=== PATIENT | male | born 1950 | race African-American/Black ===

== ENCOUNTER 2022-02-16 15:02 | Observation (INO) | payer MEDICARE ==
[2022-02-16 16:21] LABS: #Eosinphils 0.1 10x3/uL (0.0-0.5); #Monocytes 0.9 10x3/uL (0.0-1.1); #Neutrophils 4.4 10x3/uL (1.5-8.4); %Basophils 0.6 % (0.0-2.0); %Eosinophils 1.4 % (0.0-6.0); %Lymphocytes 20.8 % (18.0-47.0); %Monocytes 13.3 % (0.0-10.0); %Neutrophils 63.5 % (40.0-75.0); Hemoglobin 15.5 g/dL (13.5-17.5); Mean Corpuscular HGB CONC 34.2 g/dL (32.0-36.0); Mean Corpuscular Hemoglobin 31.8 pg (27.0-33.0); Mean Corpuscular Volume 92.8 fl (81.2-95.1); Mean Platelet Volume 10.4 fl (7.4-10.4); Platelet Count 136 10x3/uL (150-450); RBC Distribution Width 13.7 % (11.5-14.5); Red Blood Cell (RBC) Count 4.88 10x6/uL (4.32-5.72); White Blood Cell (WBC) Count 6.9 10x3/uL (3.5-10.5)
[2022-02-16 16:23] LABS: ALT (SGPT) 23 U/L (8-55); AST (SGOT) 20 U/L (5-34); Albumin 4.1 g/dL (3.4-4.8); Alkaline Phosphatase 48 U/L (40-110); Anion Gap 16 mmol/L (10-20); BUN (Urea Nitrogen) 24 mg/dL (8.4-25.7); Bilirubin, Total 1.9 mg/dL (0.2-1.2); CK (CPK) 55 U/L (30-200); Calc. Creatinine Clearance 0 mL/min (70-130); Calcium 9.7 mg/dL (7.8-10.44); Carbon Dioxide 20 mmol/L (23-31); Chloride 110 mmol/L (98-107); Globulin 3.3 g/dL (2.4-3.5); Glucose 97 mg/dL (83-110); Potassium 3.9 mmol/L (3.5-5.1); Protein, Total 7.4 g/dL (5.8-8.1); Sodium 142 mmol/L (136-145)
[2022-02-16 16:47] LABS: CKMB 0.9 ng/mL (0-6.6)
[2022-02-16 19:37] LABS: Troponin I 0.035 ng/mL (< 0.028)
[2022-02-16 20:20] VITALS: BMI 25.0
[2022-02-16 21:53] LABS: SARS-CoV-2 NAA Rapid Test Not Detected (NotDetected)
[2022-02-16] MEDS ORDERED: Acetaminophen 325 MG TAB PO PRN (22:29)
[2022-02-16] MEDS ORDERED: Furosemide 40 MG/4 ML VIAL SLOW IVP SCH (22:30)
[2022-02-16 22:39] LABS: Troponin I 0.031 ng/mL (< 0.028)
[2022-02-16 22:45] LABS: Magnesium 2.1 mg/dL (1.6-2.6)
[2022-02-16] MEDS ORDERED: Nitroglycerin 2% Ointment 1 INCH/1 GM Packet TOP SCH ×2 (22:45→23:00)
[2022-02-17] MEDS ORDERED: Furosemide 40 MG/4 ML VIAL SLOW IVP SCH ×2 (02:00→06:00)
[2022-02-17 05:05] LABS: #Eosinphils 0.1 10x3/uL (0.0-0.5); #Monocytes 0.7 10x3/uL (0.0-1.1); #Neutrophils 2.3 10x3/uL (1.5-8.4); %Basophils 0.6 % (0.0-2.0); %Lymphocytes 33.5 % (18.0-47.0); %Monocytes 14.2 % (0.0-10.0); %Neutrophils 48.5 % (40.0-75.0); Hemoglobin 15.1 g/dL (13.5-17.5); Mean Corpuscular HGB CONC 33.9 g/dL (32.0-36.0); Mean Corpuscular Volume 94.3 fl (81.2-95.1); Mean Platelet Volume 9.9 fl (7.4-10.4); Platelet Count 144 10x3/uL (150-450); RBC Distribution Width 13.8 % (11.5-14.5); Red Blood Cell (RBC) Count 4.72 10x6/uL (4.32-5.72); White Blood Cell (WBC) Count 4.7 10x3/uL (3.5-10.5)
[2022-02-17 05:20] LABS: Anion Gap 14 mmol/L (10-20); BUN (Urea Nitrogen) 21 mg/dL (8.4-25.7); Calc. Creatinine Clearance 59 mL/min (70-130); Calcium 9.7 mg/dL (7.8-10.44); Carbon Dioxide 29 mmol/L (23-31); Cardiac Risk 3.4 (Less than 4.5); Chloride 105 mmol/L (98-107); Cholesterol 172 mg/dl (< 200 Desired); Glucose 100 mg/dL (83-110); HDL Cholesterol 51 mg/dL (>60 Neg Risk); LDL Cholesterol, Calculated 97 mg/dL; Potassium 3.7 mmol/L (3.5-5.1); Sodium 144 mmol/L (136-145); Triglycerides 118 mg/dL (Less than 150)
[2022-02-17] MEDS: Nitroglycerin 2% Ointment 1 INCH/1 GM Packet TOP SCH ×2 (06:01→14:42)
[2022-02-17 07:06] LABS: Bilirubin Neg (Negative); Blood, Urine Negative (Negative); Clarity Clear (Clear); Glucose, Urine (Dipstick) Normal (Negative); Ketone, Urine Negative (Negative); Leukocyte Negative (Negative); Nitrite Negative (Negative); Protein, Urine (Dipstick) Negative (Neg-Trace); Specific Gravity, Urine 1.015 (1.002-1.036); Urobilinogen Normal mg/dL (Less than 2)
[2022-02-17 07:20] LABS: Bacteria/HPF 1+ HPF (None Seen); RBC/HPF 0-3 HPF (0-3); Squamous Epithelial 0-3 HPF (0-3); WBC/HPF 0-3 HPF (0-3)
[2022-02-17] MEDS ORDERED: Amlodipine 10 MG TAB PO SCH (09:00)
[2022-02-17] MEDS ORDERED: Hydrochlorothiazide 25 MG TAB PO SCH (09:00)
[2022-02-17] MEDS ORDERED: Cholecalciferol 1,000 UNITS (25 MCG) TAB PO SCH (09:00)
[2022-02-17] MEDS ORDERED: Lisinopril 20 MG TAB PO SCH (09:00)
[2022-02-17] MEDS ORDERED: Enoxaparin Sodium 40 MG/0.4 ML SYRINGE SC SCH (09:00)
[2022-02-17] MEDS: Carvedilol 3.125 MG TAB PO SCH ×2 (10:49→17:50)
[2022-02-17 16:38] VITALS: BP 111/64; TEMP 98
[2022-02-17] MEDS ORDERED: Atorvastatin Calcium 40 MG TAB PO SCH (21:00)
[2022-02-18] MEDS ORDERED: Furosemide 40 MG TAB PO SCH (09:00)
[2022-02-18] MEDS ORDERED: Aspirin 325 MG TAB PO SCH (09:00)
== END 2022-02-17 17:50 | disposition home or self-care (01) ==
LOC: CSHERS 15:02 → CSHTELE 18:04
PROVIDERS: ADMIT Internal Medicine; ATTEND Internal Medicine
DX: I11.0 Hypertensive heart disease with heart failure (principal); I50.43 Acute on chronic combined systolic (congestive) and diastolic (congestive) heart failure; R07.9 Chest pain, unspecified; Z79.899 Other long term (current) drug therapy; Z79.82 Long term (current) use of aspirin; R77.8 Other specified abnormalities of plasma proteins; Z87.891 Personal history of nicotine dependence; I34.0 Nonrheumatic mitral (valve) insufficiency; Z20.822 Contact with and (suspected) exposure to COVID-19
CPT/HCPCS: 71046; 80048; 80061; 81001; 82550; 82553; 83735; 83880; 84484 ×2; 85025; 93005 ×2; 93306; 96372; 96374; 96376; 99285; G0378 ×3; U0002; 36415; 80053; 84443; 93010; J1650; J1940

== ENCOUNTER 2023-10-08 13:52 | Outpatient (CLI) | payer MEDICARE | END 2023-10-08 13:53 | disposition home or self-care (01) | LOC: CSHCT 13:52 | PROVIDERS: ATTEND Physician Assistant | DX: R05.3 Chronic cough (principal); R91.8 Other nonspecific abnormal finding of lung field; J98.4 Other disorders of lung | CPT/HCPCS: 71250 ==

== ENCOUNTER 2025-10-13 08:14 | Emergency (ER) | payer OTHER ==
[2025-10-13] MEDS ORDERED: Famotidine/PF 20 mg/2ml Vial ONE (09:09)
[2025-10-13 09:29] LABS: #Basophils 0.03 10x3/uL (0.0-0.2); #Eosinophils 0.28 10x3/uL (0.0-0.5); #Monocytes 0.57 10x3/uL (0.0-1.1); #Neutrophils 2.79 10x3/uL (1.5-8.4); %Basophils 0.6 % (0.0-2.0); %Eosinophils 5.2 % (0.0-6.0); %Lymphocytes 31.9 % (18.0-47.0); %Monocytes 10.6 % (0.0-10.0); %Neutrophils 51.5 % (40.0-75.0); Hematocrit 50.3 % (38.8-50.0); Hemoglobin 16.1 g/dL (13.5-17.5); Mean Corpuscular Hemoglobin 30.4 pg (27.0-33.0); Mean Corpuscular Volume 95.1 fL (81.2-95.1); Platelet Count 109 10x3/uL (150-450); Red Blood Cell (RBC) Count 5.29 10x6/uL (4.32-5.72); White Blood Cell (WBC) Count 5.40 10x3/uL (3.5-10.5)
[2025-10-13 09:31] LABS: ALT (SGPT) 16 U/L (Less than 45); AST (SGOT) 19 U/L (11-34); Albumin 4.1 g/dL (3.1-4.5); Alkaline Phosphatase 68 U/L (40-110); Anion Gap 12 mmol/L (10-20); BUN (Urea Nitrogen) 24 mg/dL (8.4-25.7); Bilirubin, Total 0.7 mg/dL (0.3-1.2); Calc. Creatinine Clearance 0 mL/min (70-130); Calcium 10.0 mg/dL (7.8-10.44); Carbon Dioxide 27 mmol/L (23-31); Chloride 107 mmol/L (98-107); Globulin 3.6 g/dL (2.4-3.5); Glucose 120 mg/dL (83-110); Lipase 66 U/L (8-78); Potassium 5.1 mmol/L (3.5-5.1); Sodium 141 mmol/L (136-145)
[2025-10-13 10:17] LABS: MDiff Complete? YES; Platelet Adequacy Comment Appears Decreased
== END 2025-10-13 17:19 | disposition home or self-care (01) ==
LOC: CSHERS 08:14
DX: K20.90 Esophagitis, unspecified without bleeding (principal); I10 Essential (primary) hypertension; Z95.5 Presence of coronary angioplasty implant and graft; Z95.0 Presence of cardiac pacemaker; Z79.82 Long term (current) use of aspirin; Z79.899 Other long term (current) drug therapy
CPT/HCPCS: 71045; 74177; 80053; 83605; 83690; 85025; 93005; J1308; 96374